=== PATIENT | male | born 1965 | race Caucasian/White ===

== ENCOUNTER 2019-07-10 03:27 | Inpatient (IN) ==
[2019-07-10] MEDS ORDERED: IOPAMIDOL 100 ML BOTTLE IV ONE (03:28)
[2019-07-10] MEDS: 0.9 % SODIUM CHLORIDE 1,000 ML IV SCH ×2 (03:30→11:25)
[2019-07-10] MEDS ORDERED: DILTIAZEM 125 MG in DEXTROSE 5% IN WATER 100 ML IV ONE (03:41)
[2019-07-10] MEDS ORDERED: DILTIAZEM 25 MG/5 ML VIAL IV ONE ×3 (03:41→05:15)
[2019-07-10] MEDS ORDERED: DEXTROSE 5% IN WATER 100 ML IV ONE (03:47)
[2019-07-10] MEDS ORDERED: PIPERACILLIN SODIUM/TAZOBACTAM 3.375 GM in DEXTROSE 5% IN WATER 50 ML IV ONE (03:51)
[2019-07-10] MEDS ORDERED: LEVOFLOXACIN 750 MG/150 ML BAG IV ONE (03:51)
[2019-07-10] MEDS ORDERED: cefTRIAXone 2 GM in DEXTROSE 5% IN WATER 50 ML IV ONE (03:51)
[2019-07-10] MEDS ORDERED: IPRATROPIUM/ALBUTEROL 3 ML AMPUL.NEB NEB ONE ×2 (04:00→10:14)
[2019-07-10] MEDS ORDERED: ACETAMINOPHEN 325 MG TABLET PO ONE (04:18)
[2019-07-10 04:34] LABS: Hematocrit 41.3 % (40.1-51.0); Hemoglobin 13.1 g/dL (13.7-17.5); Mean Cell Volume 89.4 fL (80.0-100.0); Mean Corpuscular HGB Conc 31.7 g/dL (31.0-36.0); Mean Platelet Volume 9.9 fL (7.4-10.4); Platelet Count 237 K/mcL (140-440); RBC 4.62 M/mcL (4.63-6.08); Red Cell Distribution Width 12.9 % (11.5-14.5)
[2019-07-10 04:56] LABS: ALT/SGPT 18 U/l (0-40); AST/SGOT 19 U/l (0-37); Albumin 3.9 gm/dL (3.2-5.2); Albumin/Globulin Ratio 1.3 (1.0-2.3); Alkaline Phosphatase 85 U/L (39-117); Bilirubin,Total 0.8 mg/dL (0.0-1.0); Blood Urea Nitrogen 18 mg/dl (6-20); Calcium 8.6 mg/dl (8.6-10.4); Carbon Dioxide 23 mmol/L (22-30); Chloride 96 mmol/L (96-108); Globulin 3.1 gm/dL (2.2-3.7); Glomerular Filtration Rate 57; Glucose 110 mg/dL (70-105)
[2019-07-10 05:10] LABS: Band Neutrophils % 7 % (0-10); Eosinophils % (Manual) 1 % (0-7); Lymphocytes % 10 % (15-49); Monocytes % (Manual) 7 % (1-12); Platelet Estimate NORMAL (NORMAL); RBC Morphology NORMAL (NORMAL); Segmented Neutrophils % 75 % (38-78)
[2019-07-10] MEDS: HYDROmorphone 2 MG/ML VIAL IV PRN ×3 (05:23→09:07)
[2019-07-10 05:45] LABS: Appearance,Urine CLEAR; Bacteria,Urine 0 /hpf (0); Bilirubin,Urine NEG (NEG); Color,Urine YELLOW; Culture Indicated,Urine NO; Glucose,Urine (UA) NEGATIVE (NEG); Ketones,Urine NEG (NEG); Leukocyte Esterase,Urine NEG /uL (NEG); Mucus,Urine FEW /hpf (0); Nitrate,Urine NEG (NEG); Protein,Urine 100 mg/dL (NEG); Specific Gravity,Urine 1.027 (1.000-1.035); Urine Blood NEG mg/dL (<0.03); Urine Hyaline Cast 2 /lpf (0-2); Urine RBC 2 /hpf (0-1); Urine Squamous Epithelial Cell < 1 /hpf (0-4); Urine WBC 1 /hpf (0-4); Urobilinogen,Urine NEG (NEG)
--- NOTE | 2019-07-10 05:48 | XRay Report ---
CLINICAL INFORMATION:Dyspnea. Fever. TECHNIQUE: AP portable semierect upright chest x-ray COMPARISON: Previous examination dated 06/25/2019 FINDINGS:There is cardiomegaly. This may be slightly worse than on previous examination. Pulmonary vascularity is mildly prominent in the upper lobes consistent with pulmonary congestion. There is no pulmonary edema. There is no focal pulmonary parenchymal infiltrate. No evidence for pneumonia. No detectable pleural effusion on this AP radiograph. Jackeline and mediastinum are within normal limits. There is a rounded density in the right supraclavicular region. Etiology is not certain. There is a similar density identified on the previous examination in the left supraclavicular region. IMPRESSION: 1. Cardiomegaly and probable pulmonary congestion 2. No pulmonary edema. No focal pulmonary parenchymal infiltrate Interpreted and Authenticated by: Babatunde Adam 07/10/19
[2019-07-10] MEDS ORDERED: FUROSEMIDE 40 MG/4 ML VIAL IV ONE (06:48)
--- NOTE | 2019-07-10 06:54 | Emergency Department Note ---
Arrhythmia/Palpitations HPI - General Chief Complaint: Arrhythmia/Palpitations Stated Complaint: rapid HR Time Seen by Provider: 07/10/19 03:46 Source: patient, EMS Mode of arrival: ambulatory Limitations: no limitations - History of Present Illness HPI Narrative: This patient has been increasingly short of breath for the last several days. He does have a history of coronary disease and heart failure and perhaps COPD. He had an MA 6 months ago and was hospitalized at [place]. He had an angiogram at that time but did not require stents. He said some mild chest discomfort over the last couple of days. On arrival emergency room had a temper ature of 102 and his sat was low and required oxygen. - Related Data Home Medications Medication Instructions Recorded Confirmed lisinopril 20 mg tablet 40 mg PO BID tab 06/26/19 Ibuprofen [Motrin] 600 mg PO 07/10/19 Allergies Allergy/AdvReac Type Severity Reaction Status Date / Time No Known Drug Allergies Allergy Verified 07/10/19 03:37 Review of Systems All systems ED: reviewed and negative except as stated. Past Medical History - Past Medical History Medical history: Reports: CAD (coronary artery disease), CHF, COPD, hypertension, myocardial infarction - Social History smoking status: Current every day smoker Physical Exam Limitations: no limitations General appearance: alert Head: atraumatic Eye: Present: normal appearance ENT: Present: normal exam Neck: Present: normal inspection Chest: Present: normal inspection Respiratory: Present: rales/crackles Cardiovascular: Present: tachycardia, irregular rhythm Abdominal: Present: soft. Absent: distention, tenderness Extremities: Absent: pedal edema, pretibial edema Neurological: Present: alert Psychiatric: Present: normal affect Skin: Present: warm, dry Course Vital Signs Temperature 102.0 F H 07/10/19 03:28 Pulse Rate 145 H 07/10/19 03:28 Respiratory Rate 30 H 07/10/19 03:28 Blood Pressure 111/89 07/10/19 03:28 Pulse Oximetry (%) 90 07/10/19 03:28 Temperature 100.5 F H 07/10/19 04:54 Pulse Rate 47 L 07/10/19 08:29 Respiratory Rate 23 H 07/10/19 08:29 Blood Pressure 97/81 07/10/19 08:18 Pulse Oximetry (%) 87 L 07/10/19 08:29 Arrhythmia/Palpitations - MDM Narrative Medical decision making narrative: Radiologist was unwilling to call pneumonia on this patient and is concerned about some heart failure. I discussed case with Dr. Pemberton and he is r equesting repeat troponin and a CT angiogram to rule out PE. Once those tests are back and acceptable he is planning to admit the patient to the hospital. We did start diltiazem for rate control of his atrial fib RVR. We covered him for pneumonia with antibiotics. His blood pressure became quite high and so we gave him Vasotec 2.5 mg IV. - Lab Data Lab results reviewed: Yes I reviewed the patient's lab results. Result diagrams: 07/10/19 03:45 07/10/19 03:45 Lab Results 07/10/19 07/10/19 07/10/19 Range/Units 03:45 03:45 03:45 WBC 8.0 (4.50-11.00) K/mcL RBC 4.62 L (4.63-6.08) M/mcL Hgb 13.1 L (13.7-17.5) g/dL Hct 41.3 (40.1-51.0) % MCV 89.4 (80.0-100.0) fL MCH 28.4 (26.0-34.0) pg MCHC 31.7 (31.0-36.0) g/dL RDW 12.9 (11.5-14.5) % Plt Count 237 (140-440) K/mcL MPV 9.9 (7.4-10.4) fL Total Counted 100 Seg Neutrophils % 75 (38-78) % Band Neutrophils % 7 (0-10) % Lymphocytes % 10 L (15-49) % Monocytes % (Manual) 7 (1-12) % Eosinophils % (Manual) 1 (0-7) % Platelet Estimate Normal (NORMAL) RBC Morphology Normal (NORMAL) D-Dimer (0.00-0.40) ug/ml VBG Lactic Acid 1.0 (0.5-2.0) mmol/L Sodium 133 (133-145) mmol/L Potassium 4.7 (3.3-5.1) mmol/L Chloride 96 (96-108) mmol/L Carbon Dioxide 23 (22-30) mmol/L Anion Gap 14.0 (8-16) BUN 18 (6-20) mg/dl Creatinine 1.4 H (0.7-1.2) mg/dl GFR Calculation 57 Glucose 110 H (70-105) mg/dL Calcium 8.6 (8.6-10.4) mg/dl Total Bilirubin 0.8 (0.0-1.0) mg/dL AST 19 (0-37) U/l ALT 18 (0-40) U/l Alkaline Phosphatase 85 (39-117) U/L Troponin T (0-0.03) ng/ml NT-Pro-B Natriuret Pep 5971.0 H (0-125) pg/ml Total Protein 7.0 (5.9-8.4) gm/dL Albumin 3.9 (3.2-5.2) gm/dL Globulin 3.1 (2.2-3.7) gm/dL Albumin/Globulin Ratio 1.3 (1.0-2.3) Procalcitonin (<0.10) ng/mL Urine Color Urine Appearance Urine pH (5.0-9.0) Ur Specific [place] (1.000-1.035) Urine Protein (NEG) mg/dL Urine Glucose (UA) (NEG) mg/dL Urine Ketones (NEG) mg/dL Urine Occult Blood (<0.03) mg/dL Urine Nitrate (NEG) Urine Bilirubin (NEG) mg/dL Urine Urobilinogen (NEG) mg/dL Ur Leukocyte Esterase (NEG) /uL Urine RBC (0-1) /hpf Urine WBC (0-4) /hpf Ur Squamous Epith Cells (0-4) /hpf Urine Bacteria (0) /hpf Hyaline Casts (0-2) /lpf Urine Mucus (0) /hpf Ur Culture Indicated? 07/10/19 07/10/19 07/10/19 Range/Units 03:45 03:45 03:45 WBC (4.50-11.00) K/mcL RBC (4.63-6.08) M/mcL Hgb (13.7-17.5) g/dL Hct (40.1-51.0) % MCV (80.0-100.0) fL MCH (26.0-34.0) pg MCHC (31.0-36.0) g/dL RDW (11.5-14.5) % Plt Count (140-440) K/mcL MPV (7.4-10.4) fL Total Counted Seg Neutrophils % (38-78) % Band Neutrophils % (0-10) % Lymphocytes % (15-49) % Monocytes % (Manual) (1-12) % Eosinophils % (Manual) (0-7) % Platelet Estimate (NORMAL) RBC Morphology (NORMAL) D-Dimer 0.69 H (0.00-0.40) ug/ml VBG Lactic Acid (0.5-2.0) mmol/L Sodium (133-145) mmol/L Potassium (3.3-5.1) mmol/L Chloride (96-108) mmol/L Carbon Dioxide (22-30) mmol/L Anion Gap (8-16) BUN (6-20) mg/dl Creatinine (0.7-1.2) mg/dl GFR Calculation Glucose (70-105) mg/dL Calcium (8.6-10.4) mg/dl Total Bilirubin (0.0-1.0) mg/dL AST (0-37) U/l ALT (0-40) U/l Alkaline Phosphatase (39-117) U/L Troponin T 0.06 H* (0-0.03) ng/ml NT-Pro-B Natriuret Pep (0-125) pg/ml Total Protein (5.9-8.4) gm/dL Albumin (3.2-5.2) gm/dL Globulin (2.2-3.7) gm/dL Albumin/Globulin Ratio (1.0-2.3) Procalcitonin 0.15 (<0.10) ng/mL Urine Color Urine Appearance Urine pH (5.0-9.0) Ur Specific [place] (1.000-1.035) Urine Protein (NEG) mg/dL Urine Glucose (UA) (NEG) mg/dL Urine Ketones (NEG) mg/dL Urine Occult Blood (<0.03) mg/dL Urine Nitrate (NEG) Urine Bilirubin (NEG) mg/dL Urine Urobilinogen (NEG) mg/dL Ur Leukocyte Esterase (NEG) /uL Urine RBC (0-1) /hpf Urine WBC (0-4) /hpf Ur Squamous Epith Cells (0-4) /hpf Urine Bacteria (0) /hpf Hyaline Casts (0-2) /lpf Urine Mucus (0) /hpf Ur Culture Indicated? 07/10/19 07/10/19 Range/Units 04:45 07:30 WBC (4.50-11.00) K/mcL RBC (4.63-6.08) M/mcL Hgb (13.7-17.5) g/dL Hct (40.1-51.0) % MCV (80.0-100.0) fL MCH (26.0-34.0) pg MCHC (31.0-36.0) g/dL RDW (11.5-14.5) % Plt Count (140-440) K/mcL MPV (7.4-10.4) fL Total Counted Seg Neutrophils % (38-78) % Band Neutrophils % (0-10) % Lymphocytes % (15-49) % Monocytes % (Manual) (1-12) % Eosinophils % (Manual) (0-7) % Platelet Estimate (NORMAL) RBC Morphology (NORMAL) D-Dimer (0.00-0.40) ug/ml VBG Lactic Acid (0.5-2.0) mmol/L Sodium (133-145) mmol/L Potassium (3.3-5.1) mmol/L Chloride (96-108) mmol/L Carbon Dioxide (22-30) mmol/L Anion Gap (8-16) BUN (6-20) mg/dl Creatinine (0.7-1.2) mg/dl GFR Calculation Glucose (70-105) mg/dL Calcium (8.6-10.4) mg/dl Total Bilirubin (0.0-1.0) mg/dL AST (0-37) U/l ALT (0-40) U/l Alkaline Phosphatase (39-117) U/L Troponin T 0.06 H* (0-0.03) ng/ml NT-Pro-B Natriuret Pep (0-125) pg/ml Total Protein (5.9-8.4) gm/dL Albumin (3.2-5.2) gm/dL Globulin (2.2-3.7) gm/dL Albumin/Globulin Ratio (1.0-2.3) Procalcitonin (<0.10) ng/mL Urine Color Yellow Urine Appearance Clear Urine pH 5.0 (5.0-9.0) Ur Specific [place] 1.027 (1.000-1.035) Urine Protein 100 A (NEG) mg/dL Urine Glucose (UA) Negative (NEG) mg/dL Urine Ketones Neg (NEG) mg/dL Urine Occult Blood Neg (<0.03) mg/dL Urine Nitrate Neg (NEG) Urine Bilirubin Neg (NEG) mg/dL Urine Urobilinogen Neg (NEG) mg/dL Ur Leukocyte Esterase Neg (NEG) /uL Urine RBC 2 H (0-1) /hpf Urine WBC 1 (0-4) /hpf Ur Squamous Epith Cells < 1 (0-4) /hpf Urine Bacteria 0 (0) /hpf Hyaline Casts 2 (0-2) /lpf Urine Mucus Few (0) /hpf Ur Culture Indicated? No - Radiology Data Radiology results reviewed: Yes I reviewed the patient's radiology results. Disposition Pt seen by DRIP MOLDER/PA only: No Clinical Impression: Atrial fibrillation, Chest pain, Hypertension, Congestive heart failure Disposition: Xfer As Inpt ([facility]) Condition: Good Referrals: Unknown,Unknown [Primary Care Provider] - Time of Disposition: 08:48
[2019-07-10] MEDS ORDERED: ENALAPRILAT 1.25 MG/ML VIAL IV ONE (08:07)
--- NOTE | 2019-07-10 09:01 | Cat Scan Report ---
CLINICAL INFORMATION: Headache. Hypertension COMPARISON: None. TECHNIQUE: Axial noncontrast-enhanced images through the brain. Sagittally and coronally reformatted images. FINDINGS: No acute intracranial hemorrhage. There is no subdural hematoma. There is no subarachnoid hemorrhage. No intra-axial hematoma. No focal intra-axial attenuation abnormality or localized mass effect. No midline shift. Brain volume is normal. There is no hydrocephalus. Brainstem and cerebellum are negative. No calvarial fracture. There is no lytic lesion. Temporal bones are negative. There is sinusitis. There is mucosal thickening within maxillary, ethmoid, and sphenoid sinuses. There are no air-fluid levels. There is no bone destruction. Temporal bones are negative. IMPRESSION: 1. No intracranial abnormality 2. Sinusitis The exam was performed using radiation dose optimization techniques including, but not limited to, automated exposure control, adjustment of the mA and/or kV according to patient size and use of iterative reconstruction technique. Interpreted and Authenticated by: Babatunde Adam 07/10/19
--- NOTE | 2019-07-10 09:13 | Cat Scan Report ---
CLINICAL INFORMATION: Dyspnea, hypoxia. COMPARISON: Chest x-ray dated 07/10/2019 TECHNIQUE: Axial images obtained through the chest. 80ml Isovue 370 injected intravenously, and scanning was performed during pulmonary arterial phase. Sagittally and coronally reformatted images were obtained. MIP reformatted images. FINDINGS: Suboptimal examination as this patient is unable to suspend respiration Lungs:There are bilateral pulmonary parenchymal infiltrates. These are not well visualized on previous plain film examination. Appearance is consistent with pneumonia. Infiltrates are worst in the left upper lobe and left lower lobe. Mild right-sided infiltrates are present as well. There is apparent bronchial wall thickening although this is suboptimally demonstrated due to respiratory motion. Noncalcified nodules are possible with 2 focal densities in the right middle lobe. These measure 8 mm on image #74 and 9 mm on image 78. These findings may also be inflammatory. 3-6 month follow-up examination is recommended. There is no honeycombing. No significant bronchiectasis. No focal parenchymal consolidation. Mediastinum, vascular:Main pulmonary artery is negative. No intraluminal filling defects. Right and left pulmonary arteries are negative. No segmental emboli. Subsegmental branches are suboptimally visualized. The main pulmonary artery measures approximately 3.7 cm in cross-sectional diameter. This may indicate pulmonary arterial hypertension. Ascending thoracic aorta measures 4.5 cm in diameter. This is mildly enlarged. 12 month follow-up is recommended. There is mild mediastinal and hilar adenopathy. This is probably physiologic. No discrete edgar enlargement is present. Heart:There is four-chamber cardiac enlargement. Left ventricle is markedly enlarged with thick myocardial wall. There is reflux of contrast material into the inferior vena cava and hepatic veins consistent with right heart strain Pleura:There is no pleural effusion. No pericardial effusion Axilla, supraclavicular regions, chest wall:No pathologic axillary adenopathy. Chest wall is negative Musculoskeletal:No thoracic compression fractures. No lytic lesions. Ribs and sternum are negative Upper Abdomen:Spleen is not imaged in its entirety. AP diameter of the spleen is enlarged and measures approximately 16 cm. IMPRESSION: 1. Suboptimal evaluation due to respiratory motion 2. Negative examination for pulmonary embolism 3. Bilateral pulmonary parenchymal infiltrates consistent with pneumonia. Possible right middle lobe nodules. 3-[address] follow-up recommended 4. Enlargement of the main pulmonary artery and ascending thoracic aorta 5. Cardiomegaly with significant left ventricular enlargement 6. Reflux of contrast material consistent with right heart strain 7. Splenomegaly The exam was performed using radiation dose optimization techniques including, but not limited to, automated exposure control, adjustment of the mA and/or kV according to patient size and use of iterative reconstruction technique. Interpreted and Authenticated by: Babatunde Adam 07/10/19
[2019-07-10] MEDS ORDERED: METOPROLOL TARTRATE 5 MG/5 ML VIAL IV ONE (09:45)
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
[2019-07-10] MEDS ORDERED: POTASSIUM CHLORIDE 40 MEQ in DEXTROSE 5% IN WATER 500 ML IV PRN (10:56)
[2019-07-10] MEDS ORDERED: SENNOSIDES 1 TABLET PO PRN (10:56)
[2019-07-10] MEDS ORDERED: ACETAMINOPHEN 325 MG TABLET PO PRN (10:56)
[2019-07-10] MEDS ORDERED: NITROGLYCERIN 0.4 MG TAB.SUBL SL PRN (10:56)
[2019-07-10] MEDS: AZITHROMYCIN 500 MG in DEXTROSE 5% IN WATER 250 ML IV SCH (10:56)
[2019-07-10] MEDS ORDERED: MAGNESIUM SULFATE 2 GM/50 ML BAG IV PRN (10:56)
[2019-07-10] MEDS ORDERED: POLYETHYLENE GLYCOL 3350 17 GM PACKET PO PRN (10:56)
[2019-07-10] MEDS ORDERED: POTASSIUM CHLORIDE 20 MEQ TABLET PO PRN ×2 (10:56)
[2019-07-10 11:22] LABS: Amphetamine Screen,Urine SUSPECT POSITIVE (NONDETECTED); Barbiturate Screen,Urine NONE DETECTED (NONDETECTED); Benzodiazepines Screen,Urine NONE DETECTED (NONDETECTED); Cannabinoid Screen,Urine SUSPECT POSITIVE (NONDETECTED); Cocaine Screen,Urine NONE DETECTED (NONDETECTED); Opiate Screen,Urine NONE DETECTED (NONDETECTED); Oxycodone, Urine Screen NONE DETECTED (NONDETECTED); Phencyclidine Screen,Urine NONE DETECTED (NONDETECTED)
[2019-07-10] MEDS: PIPERACILLIN SODIUM/TAZOBACTAM 3.375 GM in DEXTROSE 5% IN WATER 50 ML IV SCH ×3 (12:00→23:58)
[2019-07-10] MEDS: ASPIRIN 81 MG TAB.CHEW PO SCH (12:44)
[2019-07-10] MEDS: METOPROLOL SUCCINATE 50 MG TAB.XL.24H PO SCH (12:44)
[2019-07-10] MEDS: 0.9 % SODIUM CHLORIDE 10 ML SYRINGE IV SCH ×2 (12:47→21:14)
[2019-07-10] MEDS: METOPROLOL TARTRATE 5 MG/5 ML VIAL IV PRN ×2 (12:54→17:38)
[2019-07-10] MEDS: LORazepam 2 MG/ML VIAL IV PRN ×2 (13:06→18:23)
[2019-07-10] MEDS: HYDROcodone/APAP 5/325MG TABLET PO PRN ×2 (13:06→18:20)
[2019-07-10] MEDS: RIVAROXABAN 20 MG TABLET PO SCH (13:09)
[2019-07-10] MEDS: ATORVASTATIN 20 MG TABLET PO SCH (21:13)
[2019-07-11] MEDS: HYDROcodone/APAP 5/325MG TABLET PO PRN ×4 (00:43→21:55)
--- NOTE | 2019-07-11 00:43 | Internal Med Progress Note ---
Medical - PN: Subj Patient information: Note initiated : 07/10/19 at 2026 pm Service Date, if different from initiated Date: [] Patient: Wilfredo Miranda a 54 y/o M admitted on 07/10/19 for rapid HR. Chief Complaint: [] Interval history: Mr. Miranda is a 54 year old M Presents ED with increasing shortness of breath and fevers and chills. She also complains of chest tightness which she relates to feeling like he has gurgling in his his lungs and this has been occurring intermittently for the past 6 months. 6 months ago he was admitted to [place] for a non-ST elevation [place]. He had a coronary catheterization which showed normal coronaries. Echocardiogram showed EF of 40 to 45% with diastolic dysfunction. He had moderate pulmonary hypertension. Patient has had increased cough for 3 days occasionally productive of clear sputum. Also has sinus congestion. In ED requiring 10 to 12 L of oxygen. CTA of the chest showed bilateral parenchymal infiltrates worse on the left. No pulmonary emboli. Fever of 102 when he came in. He was tachycardic in the 130s with A. fib. He was started on diltiazem drip. Had some low blood pressure since then. Lactic acid is okay. Has had leg swelling the past but not too much right now. ER monitor is recording pulse of 30 but this is the pulse ox its recording that and per the staff his actual heart rates 90s. His troponin was 0.06 as it was on previous ED visit and May and a repeat was remained the same. Patient is only been taking his lisinopril and aspirin. He has not been taking the metoprolol Xarelto Aldactone Lasix and statin medication as prescribed on last discharge from [facility]. 210- 11.45 PM, ABG improved 7.3 on 50% FiO2 BiPAP. Continue antibiotic coverage/noninvasive ventilation. Telemetry A. fib with variable rate c urrently controlled around 110. No chest pain. Repeat chest imaging/ABGs in the morning. Troponin recheck 0.08. Staff expressed concerns about urine retention/throbbing headache. - Constitutional Vitals: Vital Signs Temp Pulse Resp BP Pulse Ox 97.0 F 94 H 16 132/84 99 07/10/19 21:30 07/10/19 23:23 07/10/19 23:23 07/10/19 22:04 07/10/19 23:23 Period Temp Pulse Resp BP Sys/Garcia Pulse Ox Last 24 Hr 96.5 F-102.0 F 33-145 15-33 87-254/62-241 76-100 Intake and Output 07/10/19 07/10/19 07/11/19 13:59 21:59 05:59 Intake Total 838 50 50 Output Total 1500 200 Balance -662 -150 50 Weight 245 lb 256 lb 3.2 oz Patient Weight 07/11/19 05:59 Weight 256 lb 3.2 oz Intake & Output: Intake & Output 07/10/19 07/10/19 07/11/19 13:59 21:59 05:59 Intake Total 838 50 50 Output Total 1500 200 Balance -662 -150 50 Weight 245 lb 256 lb 3.2 oz Intake: IV 838 50 50 Sodium Chloride 0.9% 1,000 ml @ 420 250 mls/hr IV .Q4H [facility] Rx#: [id number] Zithromax 500 mg In Dextrose 5% 250 in Water 250 ml @ 250 mls/hr IV DAILY [facility] Rx#:[id number] Cardizem 125 mg In Dextrose 5% 68 in Water 100 ml @ 5 MG/HR 5 mls /hr IV Q12H [facility] Rx#:[id number] Zosyn 3.375 gm In Dextrose 5% 100 50 50 in Water 50 ml @ 100 mls/hr IV Q6H [facility] Rx#:[id number] Output: Void Amount 1500 200 Other: Urine Appearance Sediment Clear Urine Color Dark Yellow Dark [place] Urine Odor Normal Strong General appearance: moderate distress (Labored breathing currently on BiPAP) Exam: Remains drowsy but respond to commands No telemetry events Nondistended abdomen Labored breathing Medical - PN: Obj Da - Labs CBC & Chem 7: 07/11/19 01:33 07/11/19 01:33 Labs: Abnormal Lab Results 07/10/19 07/10/19 07/10/19 23:27 07:30 04:45 RBC Hgb Lymphocytes % D-Dimer Creatinine Glucose Troponin T 0.08 H* 0.06 H* NT-Pro-B Natriuret Pep Urine Protein Urine RBC Ur Amphetamines Screen Suspect positive A U Marijuana (THC) Screen Suspect positive A 07/10/19 07/10/19 07/10/19 04:45 03:45 03:45 RBC Hgb Lymphocytes % D-Dimer 0.69 H Creatinine Glucose Troponin T 0.06 H* NT-Pro-B Natriuret Pep Urine Protein 100 A Urine RBC 2 H Ur Amphetamines Screen U Marijuana (THC) Screen 07/10/19 07/10/19 03:45 03:45 RBC 4.62 L Hgb 13.1 L Lymphocytes % 10 L D-Dimer Creatinine 1.4 H Glucose 110 H Troponin T NT-Pro-B Natriuret Pep 5971.0 H Urine Protein Urine RBC Ur Amphetamines Screen U Marijuana (THC) Screen Meds: Medications Acetaminophen (Tylenol) 650 mg PO Q6HP PRN PRN Reason: PAIN/FEVER > 101 Last Admin: 07/10/19 21:22 Dose: 650 mg Documented by: Hydrocodone Bitart/Acetaminophen ([place] 5/325mg) 1 tab PO Q6HP PRN; Protocol PRN Reason: Per Pain Protocol Last Admin: 07/10/19 18:20 Dose: 1 tab Documented by: Albuterol/Ipratropium (Duoneb) 3 ml NEB Q4HP PRN PRN Reason: Shortness Of Breath Aspirin (Aspirin) 81 mg PO DAILY [facility] Last Admin: 07/10/19 12:44 Dose: 81 mg Documented by: Atorvastatin Calcium (Lipitor) 20 mg PO HS [facility] Last Admin: 07/10/19 21:13 Dose: 20 mg Documented by: Furosemide (Lasix) 40 mg PO DAILY [facility] Diltiazem HCl 125 mg/ Dextrose 125 mls @ 5 mls/hr IV Q12H [facility]; Protocol Stop: 07/11/19 04:40 Last Titration: 07/10/19 10:00 Dose: Infused Documented by: Potassium Chloride 40 meq/ (Dextrose) 520 mls @ 130 mls/hr IV UD PRN PRN Reason: Potassium < 3 Magnesium Sulfate (Magnesium Sulfate) 2 gm in 50 mls @ 50 mls/hr IV UD PRN PRN Reason: Magnesium </= 1.6 Piperacillin Sod/Tazobactam (Sod 3.375 gm/ Dextrose) 50 mls @ 100 mls/hr IV Q6H [facility]; Protocol Last Infusion: 07/11/19 00:29 Dose: Infused Documented by: Azithromycin 500 mg/ Dextrose 250 mls @ 250 mls/hr IV DAILY [facility]; Protocol Stop: 07/12/19 09:59 Last Infusion: 07/10/19 11:57 Dose: Infused Documented by: Labetalol HCl (Trandate) 0 mg IV Q2HP PRN PRN Reason: Hypertension Lorazepam (Ativan) 0.5 mg IV Q6HP PRN PRN Reason: ANXIETY/SEDATION Last Admin: 07/10/19 18:23 Dose: 0.5 mg Documented by: Metoprolol Succinate (Toprol Xl) 50 mg PO DAILY [facility] Last Admin: 07/10/19 12:44 Dose: 50 mg Documented by: Metoprolol Tartrate (Lopressor) 5 mg IV Q2HP PRN PRN Reason: Tachyarrhythmias HR>110 Last Admin: 07/10/19 17:38 Dose: 5 mg Documented by: Nitroglycerin (Nitrostat) 0.4 mg SL Q5M PRN PRN Reason: Chest Pain Ondansetron HCl (Zofran) 4 mg IV Q4HP PRN PRN Reason: Nausea And Vomiting Polyethylene Glycol (Miralax) 17 gm PO DAILYP PRN PRN Reason: Constipation Potassium Chloride (Kdur) 40 meq PO UD PRN PRN Reason: Potssium is 3-3.5 Potassium Chloride (Kdur) 40 meq PO UD PRN PRN Reason: Potassium < 3 Rivaroxaban (Xarelto) 20 mg PO QPMCC [facility] Last Admin: 07/10/19 13:09 Dose: 20 mg Documented by: Senna (Senokot) 2 tab PO DAILYP PRN PRN Reason: Constipation Sodium Chloride (Saline Flush) 10 ml IV Q8 [facility] Last Admin: 07/10/19 21:14 Dose: 10 ml Documented by: Spironolactone (Aldactone) 25 mg PO DAILY [facility] Medical - PN: A/P - Time Spent With Patient Total time spent is greater than 50% in coordination of care (as documented) at patient's floor/unit and/or counseling patient: Greater than 35 minutes (Critical care time) (1) Sepsis with acute hypoxic respiratory failure without septic shock Status: Acute Assessment and plan: * Acute respiratory failure with hypoxia and hypercapnia-respiratory acidosis. Currently on 50% BiPAP with improving blood gases/CO2 and pH. Continue no ninvasive ventilation. * Pneumonia community-acquired continue antibiotic coverage * Sepsis secondary above continue management per guidelines * A. fib with RVR currently rate controlled. Patient not taking his home dose beta-birgit or Xarelto * Demand ischemia with troponin elevation peak 8.08, recent cardiac cath 10/2018 normal coronaries * History of CKD creatinine 1.7 * Obesity * History of CVA * Tobacco dependence * History of hypertension-has not been taking his home medications. Plan * Continue noninvasive ventilation * ICU care * Rate control measures * Sepsis management guidelines * Serial chest imaging/ABGs Current Visit: Yes Medical - PN: Qual - VTE Deep Vein Thrombosis/Pulmonary Embolism Present on Admission: No
[2019-07-11] MEDS: LORazepam 2 MG/ML VIAL IV PRN ×4 (00:58→19:56)
[2019-07-11 01:44] LABS: POC Blood Urea Nitrogen 28 mg/dl (6-20); POC CO2 29 mmol/L (22-30); POC Calcium, Ionized 1.08 mmol/L (1.16-1.32); POC Chloride 100 mmol/L (96-108); POC Creatinine 1.7 mg/dl (0.7-1.2); POC Glucose, Random 90 mg/dL (70-105); POC Potassium 4.2 mmol/L (3.3-5.1); POC Sodium 137 mmol/L (133-145)
[2019-07-11 02:12] LABS: Basophils # (Auto) 0.03 K/mcL (0.00-0.30); Basophils % (Auto) 0.6 % (0.0-2.0); Eosinophils # (Auto) 0.08 K/mcL (0.00-0.70); Eosinophils % (Auto) 1.7 % (0.0-7.0); Granulocytes % (Auto) 66.9 % (38.0-78.0); Hematocrit 40.2 % (40.1-51.0); Hemoglobin 12.4 g/dL (13.7-17.5); Lymphocytes % (Auto) 20.7 % (15.5-49.0); Mean Cell Volume 91.6 fL (80.0-100.0); Mean Corpuscular HGB Conc 30.8 g/dL (31.0-36.0); Mean Platelet Volume 10.1 fL (7.4-10.4); Monocytes # (Auto) 0.49 K/mcL (0.10-0.90); Monocytes % (Auto) 10.1 % (1.0-12.0); Platelet Count 189 K/mcL (140-440); RBC 4.39 M/mcL (4.63-6.08); Red Cell Distribution Width 13.5 % (11.5-14.5); WBC 4.8 K/mcL (4.50-11.00)
[2019-07-11 02:26] LABS: ALT/SGPT 17 U/l (0-40); AST/SGOT 18 U/l (0-37); Albumin 3.5 gm/dL (3.2-5.2); Albumin/Globulin Ratio 1.3 (1.0-2.3); Alkaline Phosphatase 71 U/L (39-117); Bilirubin,Direct 0.3 mg/dL (0.0-0.3); Bilirubin,Total 0.8 mg/dL (0.0-1.0); Blood Urea Nitrogen 26 mg/dl (6-20); Calcium 8.1 mg/dl (8.6-10.4); Carbon Dioxide 26 mmol/L (22-30); Chloride 100 mmol/L (96-108); Globulin 2.8 gm/dL (2.2-3.7); Glomerular Filtration Rate 45; Glucose 94 mg/dL (70-105); HDL Cholesterol 27 mg/dl (>40); LDL Cholesterol,Calculated 49 mg/dl (SEE CHART); Lactate Dehydrogenase 263 U/L (94-250); Non-HDL Cholesterol 61 (LDL TARGET+30); Phosphorous 4.3 mg/dL (2.7-4.5); Triglycerides 63 mg/dl (<150); Uric Acid 5.9 mg/dL (2.5-8.0)
[2019-07-11 02:56] LABS: Appearance,Urine CLOUDY; Bacteria,Urine 0 /hpf (0); Bilirubin,Urine NEG (NEG); Color,Urine YELLOW; Culture Indicated,Urine YES; Glucose,Urine (UA) 50 mg/dL (NEG); Ketones,Urine 5/TR mg/dL (NEG); Leukocyte Esterase,Urine NEG /uL (NEG); Nitrate,Urine NEG (NEG); Protein,Urine 100 mg/dL (NEG); Specific Gravity,Urine 1.039 (1.000-1.035); Urine Blood 0.2 mg/dL (<0.03); Urine Budding Yeast MANY /hpf (0); Urine RBC > 182 /hpf (0-1); Urine Squamous Epithelial Cell 0 /hpf (0-4); Urine WBC 62 /hpf (0-4); Urobilinogen,Urine NEG (NEG)
[2019-07-11] MEDS: PIPERACILLIN SODIUM/TAZOBACTAM 3.375 GM in DEXTROSE 5% IN WATER 50 ML IV SCH ×3 (05:13→16:47)
[2019-07-11] MEDS: 0.9 % SODIUM CHLORIDE 10 ML SYRINGE IV SCH ×3 (05:13→21:35)
[2019-07-11] MEDS: FUROSEMIDE 40 MG TABLET PO SCH (08:11)
[2019-07-11] MEDS: METOPROLOL SUCCINATE 50 MG TAB.XL.24H PO SCH (08:11)
[2019-07-11] MEDS: SPIRONOLACTONE 25 MG TABLET PO SCH (08:12)
[2019-07-11] MEDS: AZITHROMYCIN 500 MG in DEXTROSE 5% IN WATER 250 ML IV SCH (08:12)
[2019-07-11] MEDS: IPRATROPIUM/ALBUTEROL 3 ML AMPUL.NEB NEB PRN ×2 (08:16→12:44)
--- NOTE | 2019-07-11 09:41 | XRay Report ---
CLINICAL INFORMATION:Hypoxia. Pneumonia. TECHNIQUE: AP portable semiupright chest x-ray COMPARISON: Previous chest CT scan dated 07/10/2019. Previous chest x-rays dated 07/10/2019 and 06/25/2019 FINDINGS:Persistent cardiomegaly. This is unchanged. There is pulmonary parenchymal infiltrate. Infiltrate is bilateral, left worse than right. Infiltrate appears worse than on previous plain film examination dated 07/10/2019. Continued follow-up recommended. There is no focal consolidation. There is no discrete mass. There is no evidence for pulmonary edema. Costophrenic angles are sharp without findings of pleural effusion. IMPRESSION: 1. Cardiomegaly, unchanged. No evidence for congestive heart failure 2. Increased bilateral pulmonary parenchymal infiltrate consistent with pneumonia Interpreted and Authenticated by: Babatunde Adam 07/11/19
[2019-07-11] MEDS: METOPROLOL TARTRATE 5 MG/5 ML VIAL IV PRN ×2 (10:58→13:55)
[2019-07-11] MEDS ORDERED: METOPROLOL TARTRATE 5 MG/5 ML VIAL IV PRN (15:30)
[2019-07-11] MEDS ORDERED: METOPROLOL TARTRATE 5 MG/5 ML VIAL IV SCH (15:30)
[2019-07-11] MEDS: ASPIRIN 81 MG TAB.CHEW PO SCH (16:47)
[2019-07-11] MEDS: RIVAROXABAN 20 MG TABLET PO SCH (16:47)
[2019-07-11] MEDS: ATORVASTATIN 20 MG TABLET PO SCH (19:56)
--- NOTE | 2019-07-11 20:41 | Internal Med Progress Note ---
Medical - PN: Subj Patient information: Note initiated : 07/11/19 at 8:37 pm Service Date, if different from initiated Date: [] Patient: Wilfredo Miranda a 54 y/o M admitted on 07/10/19 for rapid HR. Chief Complaint: [] Interval history: Mr. Miranda is a 54 year old M Presents ED with increasing shortness of breath and fevers and chills. She also complains of chest tightness which she relates to feeling like he has gurgling in his his lungs and this has been occurring intermittently for the past 6 months. 6 months ago he was admitted to [place] for a non-ST elevation [place]. He had a coronary catheterization which showed normal coronaries. Echocardiogram showed EF of 40 to 45% with diastolic dysfunction. He had moderate pulmonary hypertension. Patient has had increased cough for 3 days occasionally productive of clear sputum. Also has sinus congestion. In ED requiring 10 to 12 L of oxygen. CTA of the chest showed bilateral parenchymal infiltrates worse on the left. No pulmonary emboli. Fever of 102 when he came in. He was tachycardic in the 130s with A. fib. He was started on diltiazem drip. Had some low blood pressure since then. Lactic acid is okay. Has had leg swelling the past but not too much right now. ER monitor is recording pulse of 30 but this is the pulse ox its recording that and per the staff his actual heart rates 90s. His troponin was 0.06 as it was on previous ED visit and May and a repeat was remained the same. Patient is only been taking his lisinopril and aspirin. He has not been taking the metoprolol Xarelto Aldactone Lasix and statin medication as prescribed on last discharge from [place]. 07/10- 11.45 PM, ABG improved 7.3 / on 50% FiO2 BiPAP. Continue antibiotic coverage/noninvasive ventilation. Telemetry A. fib with variable rate c urrently controlled around 110. No chest pain. Repeat chest imaging/ABGs in the morning. Troponin recheck 0.08. Staff expressed concerns about urine retention/throbbing headache. 07/11-patient currently on BiPAP. Reviewed blood gases and chest imaging. On 40% FiO2.ABG 7.30/63/115, bilateral multifocal chest infiltrates worsening. On antibiotic coverage. Continue noninvasive ventilation as tolerated. Continue ICU care. Remains critically ill. A. fib RVR now rate controlled around 120. Continue beta-birgit. - Constitutional Vitals: Vital Signs Temp Pulse Resp BP Pulse Ox 97.6 F 111 H 17 128/102 93 07/11/19 20:07 07/11/19 14:29 07/11/19 20:07 07/11/19 20:07 07/11/19 20:07 Period Temp Pulse Resp BP Sys/Garcia Pulse Ox Last 24 Hr 97.0 F-98.4 F 94-128 04-28 100-148/67-112 85-100 Intake and Output 07/11/19 07/11/19 07/11/19 05:59 13:59 21:59 Intake Total 1060 1650 320 Output Total 747 625 365 Balance 313 1025 -45 Weight 256 lb 3.2 oz 253 lb 8 oz Patient Weight 07/12/19 05:59 Weight 253 lb 8 oz Intake & Output: Intake & Output 07/11/19 07/11/19 07/11/19 05:59 13:59 21:59 Intake Total 1060 1650 320 Output Total 747 625 365 Balance 313 1025 -45 Weight 256 lb 3.2 oz 253 lb 8 oz Intake: IV 100 300 50 Zithromax 500 mg In Dextrose 5% 250 in Water 250 ml @ 250 mls/hr IV DAILY [facility] Rx#:[id number] Zosyn 3.375 gm In Dextrose 5% 100 50 50 in Water 50 ml @ 100 mls/hr IV Q6H [facility] Rx#:[id number] Oral 960 1350 270 Output: Urine Catheter Amount 747 625 365 Stool 0 Other: Meal snack Lunch Dinner Percent of Meal Consumed 100% 100% 100% Feeding Ability Assist with Tray Set Up Independent Urine Appearance Cloudy Hematuria Hematuria Uretheral (Yao) Cloudy Cloudy Cloudy Sediment Hematuria Small Blood Clots Hematuria Urine Color Straw Brown Dark Red Dark Red Uretheral (Yao) Dark Red Dark Red Straw Blood Tinged Urine Odor Normal Normal Stool Size Large Moderate Stool Color Brown Brown Stool Consistency Formed Liquid # Bowel Movements 1 General appearance: moderate distress (Short of breath currently on BiPAP) Exam: Telemetry A. fib RVR Nonlabored breathing Yao is draining bloody urine Anxious Medical - PN: Obj Da - Labs CBC & Chem 7: 07/11/19 01:33 07/11/19 01:33 Labs: Abnormal Lab Results 07/11/19 07/11/19 07/11/19 01:33 01:33 01:33 RBC 4.39 L Hgb 12.4 L POC Hct 38.0 L MCHC 30.8 L Lymph # (Auto) 1.00 L Lymphocytes % D-Dimer POC BUN 28 H BUN 26 H Creatinine 1.7 H POC Creatinine 1.7 H Glucose Calcium 8.1 L POC WB Ioniz Calcium 1.08 L Lactate Dehydrogenase 263 H Troponin T NT-Pro-B Natriuret Pep HDL Cholesterol 27 L Ur Specific [place] Urine Protein Urine Glucose (UA) Urine Ketones Urine Occult Blood Urine RBC Urine WBC Urine Yeast (Budding) Ur Amphetamines Screen U Marijuana (THC) Screen 07/11/19 07/10/19 07/10/19 01:32 23:27 07:30 RBC Hgb POC Hct MCHC Lymph # (Auto) Lymphocytes % D-Dimer POC BUN BUN Creatinine POC Creatinine Glucose Calcium POC WB Ioniz Calcium Lactate Dehydrogenase Troponin T 0.08 H* 0.06 H* NT-Pro-B Natriuret Pep HDL Cholesterol Ur Specific [place] 1.039 H Urine Protein 100 A Urine Glucose (UA) 50 A Urine Ketones 5/tr A Urine Occult Blood 0.2 A Urine RBC > 182 H Urine WBC 62 H Urine Yeast (Budding) Many A Ur Amphetamines Screen U Marijuana (THC) Screen 07/10/19 07/10/19 07/10/19 04:45 04:45 03:45 RBC Hgb POC Hct MCHC Lymph # (Auto) Lymphocytes % D-Dimer POC BUN BUN Creatinine POC Creatinine Glucose Calcium POC WB Ioniz Calcium Lactate Dehydrogenase Troponin T 0.06 H* NT-Pro-B Natriuret Pep HDL Cholesterol Ur Specific [place] Urine Protein 100 A Urine Glucose (UA) Urine Ketones Urine Occult Blood Urine RBC 2 H Urine WBC Urine Yeast (Budding) Ur Amphetamines Screen Suspect positive A U Marijuana (THC) Screen Suspect positive A 07/10/19 07/10/19 07/10/19 03:45 03:45 03:45 RBC 4.62 L Hgb 13.1 L POC Hct MCHC Lymph # (Auto) Lymphocytes % 10 L D-Dimer 0.69 H POC BUN BUN Creatinine 1.4 H POC Creatinine Glucose 110 H Calcium POC WB Ioniz Calcium Lactate Dehydrogenase Troponin T NT-Pro-B Natriuret Pep 5971.0 H HDL Cholesterol Ur Specific [place] Urine Protein Urine Glucose (UA) Urine Ketones Urine Occult Blood Urine RBC Urine WBC Urine Yeast (Budding) Ur Amphetamines Screen U Marijuana (THC) Screen Meds: Medications Acetaminophen (Tylenol) 650 mg PO Q6HP PRN PRN Reason: PAIN/FEVER > 101 Last Admin: 07/10/19 21:22 Dose: 650 mg Documented by: Hydrocodone Bitart/Acetaminophen ([place] 5/325mg) 1 tab PO Q6HP PRN; Protocol PRN Reason: Per Pain Protocol Last Admin: 07/11/19 17:49 Dose: 1 tab Documented by: Albuterol/Ipratropium (Duoneb) 3 ml NEB Q4HP PRN PRN Reason: Shortness Of Breath Last Admin: 07/11/19 12:44 Dose: 3 ml Documented by: Aspirin (Aspirin) 81 mg PO DAILY [facility] Last Admin: 07/11/19 16:47 Dose: 81 mg Documented by: Atorvastatin Calcium (Lipitor) 20 mg PO HS [facility] Last Admin: 07/11/19 19:56 Dose: 20 mg Documented by: Furosemide (Lasix) 40 mg PO DAILY [facility] Last Admin: 07/11/19 08:11 Dose: 40 mg Documented by: Potassium Chloride 40 meq/ (Dextrose) 520 mls @ 130 mls/hr IV UD PRN PRN Reason: Potassium < 3 Magnesium Sulfate (Magnesium Sulfate) 2 gm in 50 mls @ 50 mls/hr IV UD PRN PRN Reason: Magnesium </= 1.6 Piperacillin Sod/Tazobactam (Sod 3.375 gm/ Dextrose) 50 mls @ 100 mls/hr IV Q6H [facility]; Protocol Last Infusion: 07/11/19 17:17 Dose: Infused Documented by: Azithromycin 500 mg/ Dextrose 250 mls @ 250 mls/hr IV DAILY [facility]; Protocol Stop: 07/12/19 09:59 Last Infusion: 07/11/19 09:12 Dose: Infused Documented by: Labetalol HCl (Trandate) 0 mg IV Q2HP PRN PRN Reason: Hypertension Lorazepam (Ativan) 0.5 mg IV Q6HP PRN PRN Reason: ANXIETY/SEDATION Last Admin: 07/11/19 19:56 Dose: 0.5 mg Documented by: Metoprolol Succinate (Toprol Xl) 50 mg PO DAILY [facility] Last Admin: 07/11/19 08:11 Dose: 50 mg Documented by: Metoprolol Tartrate (Lopressor) 5 mg IV Q5M PRN PRN Reason: Tachycardia > 120-130 Nitroglycerin (Nitrostat) 0.4 mg SL Q5M PRN PRN Reason: Chest Pain Ondansetron HCl (Zofran) 4 mg IV Q4HP PRN PRN Reason: Nausea And Vomiting Polyethylene Glycol (Miralax) 17 gm PO DAILYP PRN PRN Reason: Constipation Potassium Chloride (Kdur) 40 meq PO UD PRN PRN Reason: Potssium is 3-3.5 Potassium Chloride (Kdur) 40 meq PO UD PRN PRN Reason: Potassium < 3 Rivaroxaban (Xarelto) 20 mg PO QPMCC [facility] Last Admin: 07/11/19 16:47 Dose: 20 mg Documented by: Senna (Senokot) 2 tab PO DAILYP PRN PRN Reason: Constipation Sodium Chloride (Saline Flush) 10 ml IV Q8 [facility] Last Admin: 07/11/19 13:39 Dose: 10 ml Documented by: Spironolactone (Aldactone) 25 mg PO DAILY [facility] Last Admin: 07/11/19 08:12 Dose: 25 mg Documented by: Medical - PN: A/P - Time Spent With Patient Total time spent is greater than 50% in coordination of care (as documented) at patient's floor/unit and/or counseling patient: Greater than 35 minutes (Critical care time) (1) Sepsis with acute hypoxic respiratory failure without septic shock Status: Acute Assessment and plan: * Acute respiratory failure with hypoxia and hypercapnia with respiratory acidosis. Improving blood gases. Continue noninvasive mechanical ventilation. * Bilateral multifocal pneumonia likely community-acquired -on antibiotic coverage * Sepsis secondary above continue management per guidelines * A. fib with RVR currently rate controlled. Restarted on beta-birgit. Patient has not been taking his beta-birgit or Xarelto at home * Demand ischemia with troponin elevation peak 0.08, recent cardiac cath 10/2018 normal coronaries * History of CKD creatinine 1.7. Continue monitoring * Obesity, BMI 37. Continue targeted intervention including nutrition and therapies * History of CVA * Tobacco dependence * History of hypertension-has not been taking his home medications. Plan * Wean noninvasive mechanical ventilation as tolerated * Serial blood gas/chest imaging * antibiotic coverage * Continue rate control measures * Sepsis management guidelines * Remains critically ill Current Visit: Yes Medical - PN: Qual - VTE Deep Vein Thrombosis/Pulmonary Embolism Present on Admission: No
[2019-07-11] MEDS: LABETALOL 5 MG/ML ML IV PRN (22:13)
[2019-07-12] MEDS: PIPERACILLIN SODIUM/TAZOBACTAM 3.375 GM in DEXTROSE 5% IN WATER 50 ML IV SCH ×5 (00:16→23:07)
[2019-07-12] MEDS: HYDROcodone/APAP 5/325MG TABLET PO PRN ×4 (02:00→19:45)
[2019-07-12] MEDS: 0.9 % SODIUM CHLORIDE 10 ML SYRINGE IV SCH ×3 (05:56→20:49)
[2019-07-12] MEDS: LORazepam 2 MG/ML VIAL IV PRN ×3 (06:42→19:45)
[2019-07-12] MEDS: ASPIRIN 81 MG TAB.CHEW PO SCH (08:34)
[2019-07-12] MEDS: SPIRONOLACTONE 25 MG TABLET PO SCH (08:34)
[2019-07-12] MEDS: METOPROLOL SUCCINATE 50 MG TAB.XL.24H PO SCH (08:34)
[2019-07-12] MEDS: FUROSEMIDE 40 MG TABLET PO SCH (08:34)
[2019-07-12] MEDS: AZITHROMYCIN 500 MG in DEXTROSE 5% IN WATER 250 ML IV SCH (08:35)
[2019-07-12] MEDS ORDERED: ACETAMINOPHEN 325 MG TABLET PO SCH (09:16)
[2019-07-12] MEDS: IBUPROFEN 200 MG TABLET PO SCH ×2 (09:31→20:48)
[2019-07-12] MEDS: ACETAMINOPHEN 325 MG TABLET PO SCH ×3 (09:32→20:49)
--- NOTE | 2019-07-12 10:23 | Internal Med Progress Note ---
Medical - PN: Subj Patient information: Note initiated : 07/12/19 at 10:21 am Service Date, if different from initiated Date: [] Patient: Wilfredo Miranda a 54 y/o M admitted on 07/10/19 for rapid HR. Chief Complaint: [] Interval history: Mr. Miranda is a 54 year old M Presents ED with increasing shortness of breath and fevers and chills. She also complains of chest tightness which she relates to feeling like he has gurgling in his his lungs and this has been occurring intermittently for the past 6 months. 6 months ago he was admitted to [place] for a non-ST elevation [place]. He had a coronary catheterization which showed normal coronaries. Echocardiogram showed EF of 40 to 45% with diastolic dysfunction. He had moderate pulmonary hypertension. Patient has had increased cough for 3 days occasionally productive of clear sputum. Also has sinus congestion. In ED requiring 10 to 12 L of oxygen. CTA of the chest showed bilateral parenchymal infiltrates worse on the left. No pulmonary emboli. Fever of 102 when he came in. He was tachycardic in the 130s with A. fib. He was started on diltiazem drip. Had some low blood pressure since then. Lactic acid is okay. Has had leg swelling the past but not too much right now. ER monitor is recording pulse of 30 but this is the pulse ox its recording that and per the staff his actual heart rates 90s. His troponin was 0.06 as it was on previous ED visit and May and a repeat was remained the same. Patient is only been taking his lisinopril and aspirin. He has not been taking the metoprolol Xarelto Aldactone Lasix and statin medication as prescribed on last discharge from [place]. 07/10- 11.45 PM, ABG improved 7.3 on 50% FiO2 BiPAP. Continue antibiotic coverage/noninvasive ventilation. Telemetry A. fib with variable rate currently controlled around 110. No chest pain. Repeat chest imaging/ABGs in the morning. Troponin recheck 0.08. Staff expressed concerns about urine retention/throbbing headache. 07/11-patient currently on BiPAP. Reviewed blood gases and chest imaging. On 40% FiO2.ABG 7.30/63/115, bilateral multifocal chest infiltrates worsening. On antibiotic coverage. Continue noninvasive ventilation as tolerated. Continue ICU care. Remains critically ill. A. fib RVR now rate controlled around 120. Continue beta-birgit. 07/12-patient on trials off BiPAP. Improved oxygenation currently on 5 L nasal cannula. Able to talk in full sentences. Complains of splitting headache which has has been longstanding over the last 5 years. However now feels out of control. Started on scheduled Tylenol/Motrin. Continuing antibiotic coverage. Also concerns about a prior history of spider bite on the nose in relation to headaches. It showed that patient is already on antibiotics for pneumonia and t here is no active visible active area of skin infection that needs to be addressed emergently. - Constitutional Vitals: Vital Signs Temp Pulse Resp BP Pulse Ox 98.1 F 104 H 22 124/103 100 07/12/19 08:01 07/12/19 09:39 07/12/19 09:39 07/12/19 08:01 07/12/19 09:39 Period Temp Pulse Resp BP Sys/Garcia Pulse Ox Last 24 Hr 97.1 F-98.8 F 104-137 4-26 104-162/78-119 77-100 Intake and Output 07/11/19 07/12/19 07/12/19 21:59 05:59 13:59 Intake Total 1070 2420 50 Output Total 665 401 Balance 405 2018 50 Weight 253 lb 8 oz Intake & Output: Intake & Output 07/11/19 07/12/19 07/12/19 21:59 05:59 13:59 Intake Total 1070 2420 50 Output Total 665 401 Balance 405 2018 50 Weight 253 lb 8 oz Intake: IV 50 50 50 Zosyn 3.375 gm In Dextrose 5% 50 50 50 in Water 50 ml @ 100 mls/hr IV Q6H [facility] Rx#:[id number] Oral 1020 2370 Output: Urine Catheter Amount 665 300 Void Amount 100 # of times incontinent of urine 1 Other: Meal snack snack Percent of Meal Consumed 100% 100% Feeding Ability Independent Urine Appearance Cloudy Cloudy Sediment Hematuria Hematuria Small Blood Clots Small Blood Clots Uretheral (Yao) Clear Hematuria Small Blood Clots Urine Color Light Kendal Light Kendal Tea Colored Uretheral (Yao) Light Kendal Light Kendal Urine Odor Normal Normal Stool Size Moderate Stool Color Brown Stool Consistency Liquid # Voids 1 # Bowel Movements 1 General appearance: no acute distress Exam: Alert but anxious Telemetry intermittent RVR/A. fib Nonlabored breathing Diminished breath sounds bases Abdomen soft nontender Lower extremity no cyanosis clubbing or lymphedema Medical - PN: Obj Da - Labs CBC & Chem 7: 07/11/19 01:33 07/11/19 01:33 Labs: Abnormal Lab Results 07/11/19 07/11/19 07/11/19 01:33 01:33 01:33 RBC 4.39 L Hgb 12.4 L POC Hct 38.0 L MCHC 30.8 L Lymph # (Auto) 1.00 L Lymphocytes % D-Dimer POC BUN 28 H BUN 26 H Creatinine 1.7 H POC Creatinine 1.7 H Glucose Calcium 8.1 L POC WB Ioniz Calcium 1.08 L Lactate Dehydrogenase 263 H Troponin T NT-Pro-B Natriuret Pep HDL Cholesterol 27 L Ur Specific [place] Urine Protein Urine Glucose (UA) Urine Ketones Urine Occult Blood Urine RBC Urine WBC Urine Yeast (Budding) Ur Amphetamines Screen U Marijuana (THC) Screen 07/11/19 07/10/19 07/10/19 01:32 23:27 07:30 RBC Hgb POC Hct MCHC Lymph # (Auto) Lymphocytes % D-Dimer POC BUN BUN Creatinine POC Creatinine Glucose Calcium POC WB Ioniz Calcium Lactate Dehydrogenase Troponin T 0.08 H* 0.06 H* NT-Pro-B Natriuret Pep HDL Cholesterol Ur Specific [place] 1.039 H Urine Protein 100 A Urine Glucose (UA) 50 A Urine Ketones 5/tr A Urine Occult Blood 0.2 A Urine RBC > 182 H Urine WBC 62 H Urine Yeast (Budding) Many A Ur Amphetamines Screen U Marijuana (THC) Screen 07/10/19 07/10/19 07/10/19 04:45 04:45 03:45 RBC Hgb POC Hct MCHC Lymph # (Auto) Lymphocytes % D-Dimer POC BUN BUN Creatinine POC Creatinine Glucose Calcium POC WB Ioniz Calcium Lactate Dehydrogenase Troponin T 0.06 H* NT-Pro-B Natriuret Pep HDL Cholesterol Ur Specific [place] Urine Protein 100 A Urine Glucose (UA) Urine Ketones Urine Occult Blood Urine RBC 2 H Urine WBC Urine Yeast (Budding) Ur Amphetamines Screen Suspect positive A U Marijuana (THC) Screen Suspect positive A 07/10/19 07/10/19 07/10/19 03:45 03:45 03:45 RBC 4.62 L Hgb 13.1 L POC Hct MCHC Lymph # (Auto) Lymphocytes % 10 L D-Dimer 0.69 H POC BUN BUN Creatinine 1.4 H POC Creatinine Glucose 110 H Calcium POC WB Ioniz Calcium Lactate Dehydrogenase Troponin T NT-Pro-B Natriuret Pep 5971.0 H HDL Cholesterol Ur Specific [place] Urine Protein Urine Glucose (UA) Urine Ketones Urine Occult Blood Urine RBC Urine WBC Urine Yeast (Budding) Ur Amphetamines Screen U Marijuana (THC) Screen Meds: Medications Acetaminophen (Tylenol) 650 mg PO Q6H [facility] Last Admin: 07/12/19 09:32 Dose: 650 mg Documented by: Hydrocodone Bitart/Acetaminophen ([place] 5/325mg) 1 tab PO Q6HP PRN; Protocol PRN Reason: Per Pain Protocol Last Admin: 07/12/19 07:40 Dose: 1 tab Documented by: Albuterol/Ipratropium (Duoneb) 3 ml NEB Q4HP PRN PRN Reason: Shortness Of Breath Last Admin: 07/11/19 12:44 Dose: 3 ml Documented by: Aspirin (Aspirin) 81 mg PO DAILY [facility] Last Admin: 07/12/19 08:34 Dose: 81 mg Documented by: Atorvastatin Calcium (Lipitor) 20 mg PO HS [facility] Last Admin: 07/11/19 19:56 Dose: 20 mg Documented by: Furosemide (Lasix) 40 mg PO DAILY [facility] Last Admin: 07/12/19 08:34 Dose: 40 mg Documented by: Potassium Chloride 40 meq/ (Dextrose) 520 mls @ 130 mls/hr IV UD PRN PRN Reason: Potassium < 3 Magnesium Sulfate (Magnesium Sulfate) 2 gm in 50 mls @ 50 mls/hr IV UD PRN PRN Reason: Magnesium </= 1.6 Piperacillin Sod/Tazobactam (Sod 3.375 gm/ Dextrose) 50 mls @ 100 mls/hr IV Q6H [facility]; Protocol Last Infusion: 07/12/19 06:27 Dose: Infused Documented by: Ibuprofen (Motrin) 200 mg PO BID [facility]; Protocol Last Admin: 07/12/19 09:31 Dose: 200 mg Documented by: Labetalol HCl (Trandate) 0 mg IV Q2HP PRN PRN Reason: Hypertension Last Admin: 07/11/19 22:13 Dose: 10 mg Documented by: Lorazepam (Ativan) 0.5 mg IV Q6HP PRN PRN Reason: ANXIETY/SEDATION Last Admin: 07/12/19 06:42 Dose: 0.5 mg Documented by: Metoprolol Succinate (Toprol Xl) 50 mg PO DAILY [facility] Last Admin: 07/12/19 08:34 Dose: 50 mg Documented by: Metoprolol Tartrate (Lopressor) 5 mg IV Q5M PRN PRN Reason: Tachycardia > 120-130 Nitroglycerin (Nitrostat) 0.4 mg SL Q5M PRN PRN Reason: Chest Pain Ondansetron HCl (Zofran) 4 mg IV Q4HP PRN PRN Reason: Nausea And Vomiting Polyethylene Glycol (Miralax) 17 gm PO DAILYP PRN PRN Reason: Constipation Potassium Chloride (Kdur) 40 meq PO UD PRN PRN Reason: Potssium is 3-3.5 Potassium Chloride (Kdur) 40 meq PO UD PRN PRN Reason: Potassium < 3 Rivaroxaban (Xarelto) 20 mg PO QPMCC [facility] Last Admin: 07/11/19 16:47 Dose: 20 mg Documented by: Senna (Senokot) 2 tab PO DAILYP PRN PRN Reason: Constipation Sodium Chloride (Saline Flush) 10 ml IV Q8 [facility] Last Admin: 07/12/19 05:56 Dose: 10 ml Documented by: Spironolactone (Aldactone) 25 mg PO DAILY [facility] Last Admin: 07/12/19 08:34 Dose: 25 mg Documented by: Medical - PN: A/P - Time Spent With Patient Total time spent is greater than 50% in coordination of care (as documented) at patient's floor/unit and/or counseling patient: Greater than 35 minutes (Critical care time) (1) Sepsis with acute hypoxic respiratory failure without septic shock Status: Acute Assessment and plan: * Acute respiratory failure with hypoxia and hypercapnia with respiratory acidosis. Clinical improvement noted. Blood gas normalized. On trials of BiPAP * Bilateral multifocal pneumonia likely community-acquired -clinically improving on antibiotic coverage * Severe sepsis- clinically improved with management per guidelines * A. fib with RVR currently rate controlled. Continue beta-birgit. Patient has not been taking his beta-birgit or Xarelto at home * Headaches-chronic and episodic. Continue Tylenol and low-dose NSAID * Demand ischemia with troponin elevation peak 0.08, recent cardiac cath 10/2018 normal coronaries * History of CKD creatinine 1.7. * Obesity, BMI 37. Continue targeted intervention including nutrition and therapies * History of CVA * Tobacco dependence * History of hypertension-has not been taking his home medications. Plan * Wean BiPAP as tolerated * Continue antibiotic coverage * Tylenol and low-dose NSAID * Schedule outpatient follow-up with PCP * Improving prognosis Current Visit: Yes Medical - PN: Qual - VTE Deep Vein Thrombosis/Pulmonary Embolism Present on Admission: No
[2019-07-12] MEDS: RIVAROXABAN 20 MG TABLET PO SCH (17:42)
[2019-07-12] MEDS: METOPROLOL TARTRATE 5 MG/5 ML VIAL IV PRN ×2 (19:06→19:11)
[2019-07-12] MEDS: ATORVASTATIN 20 MG TABLET PO SCH (20:48)
[2019-07-13] MEDS: HYDROcodone/APAP 5/325MG TABLET PO PRN ×3 (01:55→13:56)
[2019-07-13] MEDS: ONDANSETRON 4 MG/2 ML VIAL IV PRN ×2 (01:55→20:53)
[2019-07-13] MEDS: LORazepam 2 MG/ML VIAL IV PRN ×3 (01:55→13:55)
[2019-07-13] MEDS: ACETAMINOPHEN 325 MG TABLET PO SCH ×4 (03:38→23:02)
[2019-07-13] MEDS: PIPERACILLIN SODIUM/TAZOBACTAM 3.375 GM in DEXTROSE 5% IN WATER 50 ML IV SCH ×3 (05:58→17:35)
[2019-07-13] MEDS: 0.9 % SODIUM CHLORIDE 10 ML SYRINGE IV SCH ×4 (05:58→23:28)
[2019-07-13 08:09] LABS: Band Neutrophils % 6 % (0-10); Eosinophils % (Manual) 6 % (0-7); Lymphocytes % 23 % (15-49); Monocytes % (Manual) 11 % (1-12); Platelet Estimate NORMAL (NORMAL); RBC Morphology NORMAL (NORMAL); Reactive Lymphocytes 5 % (0-2); Segmented Neutrophils % 49 % (38-78)
[2019-07-13 08:17] LABS: Hematocrit 39.8 % (40.1-51.0); Hemoglobin 12.3 g/dL (13.7-17.5); Mean Cell Volume 92.3 fL (80.0-100.0); Mean Corpuscular HGB Conc 30.9 g/dL (31.0-36.0); Mean Platelet Volume 10.2 fL (7.4-10.4); Platelet Count 219 K/mcL (140-440); RBC 4.31 M/mcL (4.63-6.08); Red Cell Distribution Width 12.9 % (11.5-14.5); WBC 5.2 K/mcL (4.50-11.00)
[2019-07-13] MEDS: FUROSEMIDE 40 MG TABLET PO SCH (08:33)
[2019-07-13] MEDS: METOPROLOL SUCCINATE 50 MG TAB.XL.24H PO SCH (08:33)
[2019-07-13] MEDS: SPIRONOLACTONE 25 MG TABLET PO SCH (08:33)
[2019-07-13] MEDS: IBUPROFEN 200 MG TABLET PO SCH ×2 (08:33→20:53)
[2019-07-13] MEDS: ASPIRIN 81 MG TAB.CHEW PO SCH (08:34)
[2019-07-13 09:06] LABS: ALT/SGPT 23 U/l (0-40); AST/SGOT 21 U/l (0-37); Albumin 3.6 gm/dL (3.2-5.2); Albumin/Globulin Ratio 1.3 (1.0-2.3); Alkaline Phosphatase 67 U/L (39-117); Bilirubin,Direct < 0.2 mg/dL (0.0-0.3); Bilirubin,Total 0.2 mg/dL (0.0-1.0); Blood Urea Nitrogen 26 mg/dl (6-20); Calcium 8.9 mg/dl (8.6-10.4); Carbon Dioxide 30 mmol/L (22-30); Chloride 102 mmol/L (96-108); Globulin 2.7 gm/dL (2.2-3.7); Glomerular Filtration Rate 57; Glucose 113 mg/dL (70-105); Lactate Dehydrogenase 264 U/L (94-250); Phosphorous 5.3 mg/dL (2.7-4.5); Triglycerides 94 mg/dl (<150); Uric Acid 4.8 mg/dL (2.5-8.0)
[2019-07-13] MEDS: BUTALB/ACETAMINOPHEN/CAFFEINE 1 TABLET PO PRN ×2 (10:38→20:53)
--- NOTE | 2019-07-13 10:43 | Internal Med Progress Note ---
Medical - PN: Subj Patient information: Note initiated : 07/13/19 at 10:41 am Service Date, if different from initiated Date: [] Patient: Wilfredo Miranda a 54 y/o M admitted on 07/10/19 for rapid HR. Chief Complaint: [] Interval history: Mr. Miranda is a 54 year old M Presents ED with increasing shortness of breath and fevers and chills. She also complains of chest tightness which she relates to feeling like he has gurgling in his his lungs and this has been occurring intermittently for the past 6 months. 6 months ago he was admitted to [place] for a non-ST elevation [place]. He had a coronary catheterization which showed normal coronaries. Echocardiogram showed EF of 40 to 45% with diastolic dysfunction. He had moderate pulmonary hypertension. Patient has had increased cough for 3 days occasionally productive of clear sputum. Also has sinus congestion. In ED requiring 10 to 12 L of oxygen. CTA of the chest showed bilateral parenchymal infiltrates worse on the left. No pulmonary emboli. Fever of 102 when he came in. He was tachycardic in the 130s with A. fib. He was started on diltiazem drip. Had some low blood pressure since then. Lactic acid is okay. Has had leg swelling the past but not too much right now. ER monitor is recording pulse of 30 but this is the pulse ox its recording that and per the staff his actual heart rates 90s. His troponin was 0.06 as it was on previous ED visit and May and a repeat was remained the same. Patient is only been taking his lisinopril and aspirin. He has not been taking the metoprolol Xarelto Aldactone Lasix and statin medication as prescribed on last discharge from [place]. 07/10- 11.45 PM, ABG improved 7.3 on 50% FiO2 BiPAP. Continue antibiotic coverage/noninvasive ventilation. Telemetry A. fib with variable rate currently controlled around 110. No chest pain. Repeat chest imaging/ABGs in the morning. Troponin recheck 0.08. Staff expressed concerns about urine retention/throbbing headache. 07/11-patient currently on BiPAP. Reviewed blood gases and chest imaging. On 40% FiO2.ABG 7.30/63/115, bilateral multifocal chest infiltrates worsening. On antibiotic coverage. Continue noninvasive ventilation as tolerated. Continue ICU care. Remains critically ill. A. fib RVR now rate controlled around 120. Continue beta-birgit. 07/12-patient on trials off BiPAP. Improved oxygenation currently on 5 L nasal cannula. Able to talk in full sentences. Complains of splitting headache which has has been longstanding over the last 5 years. However now feels out of control. Started on scheduled Tylenol/Motrin. Continuing antibiotic coverage. Also concerns about a prior history of spider bite on the nose in relation to headaches. It showed that patient is already on antibiotics for pneumonia and t here is no active visible active area of skin infection that needs to be addressed emergently. 07/13-patient doing well. Weaning off BiPAP. Complains of intermittent headache. Currently on 4 L oxygen. Improved hemodynamics. Creatinine down to 1.4. Urine drug screen positive for amphetamines. Patient has been agitated and verbally abusive early this morning however much more cooperative at this time. Yao is discontinued. Continue antibiotic coverage and transition to oral antibiotics in 24 hours. RT to assess home oxygen - Constitutional Vitals: Vital Signs Temp Pulse Resp BP Pulse Ox 98 F 116 H 18 144/100 96 07/13/19 08:02 07/12/19 11:10 07/13/19 08:02 07/13/19 10:01 07/13/19 08:02 Period Temp Pulse Resp BP Sys/Garcia Pulse Ox Last 24 Hr 97.1 F-98.8 F 116 14-22 101-160/81-134 93-100 Intake and Output 07/12/19 07/13/19 07/13/19 21:59 05:59 13:59 Intake Total 770 410 50 Output Total 961 800 Balance -191 -390 50 Weight 259 lb Intake & Output: Intake & Output 07/12/19 07/13/19 07/13/19 21:59 05:59 13:59 Intake Total 770 410 50 Output Total 961 800 Balance -191 -390 50 Weight 259 lb Intake: IV 50 50 50 Zosyn 3.375 gm In Dextrose 5% 50 50 50 in Water 50 ml @ 100 mls/hr IV Q6H [facility] Rx#:[id number] Oral 720 360 Output: Urine Catheter Amount 960 500 Void Amount 300 # of times incontinent of urine 1 Other: Meal Dinner snack Percent of Meal Consumed 100% 100% Feeding Ability Independent Assist with Tray Set Up Urine Appearance Cloudy Hematuria Large Blood Clots Uretheral (Yao) Hematuria Small Blood Clots Urine Color Dark Kendal Dark Red Uretheral (Yao) Light Kendal Urine Odor Normal General appearance: moderate distress Exam: Short of breath and anxious No telemetry event Minimally labored breathing on 3 L oxygen No lymphedema Medical - PN: Obj Da - Labs CBC & Chem 7: 07/13/19 05:34 07/13/19 05:34 Labs: Abnormal Lab Results 07/13/19 07/13/19 07/11/19 05:34 05:34 01:33 RBC 4.31 L Hgb 12.3 L Hct 39.8 L POC Hct 38.0 L MCHC 30.9 L Lymph # (Auto) Reactive Lymphocytes 5 H POC BUN 28 H BUN 26 H Creatinine 1.4 H POC Creatinine 1.7 H Glucose 113 H Calcium POC WB Ioniz Calcium 1.08 L Phosphorus 5.3 H Lactate Dehydrogenase 264 H Troponin T HDL Cholesterol Ur Specific [place] Urine Protein Urine Glucose (UA) Urine Ketones Urine Occult Blood Urine RBC Urine WBC Urine Yeast (Budding) Ur Amphetamines Screen U Marijuana (THC) Screen 07/11/19 07/11/19 07/11/19 01:33 01:33 01:32 RBC 4.39 L Hgb 12.4 L Hct POC Hct MCHC 30.8 L Lymph # (Auto) 1.00 L Reactive Lymphocytes POC BUN BUN 26 H Creatinine 1.7 H POC Creatinine Glucose Calcium 8.1 L POC WB Ioniz Calcium Phosphorus Lactate Dehydrogenase 263 H Troponin T HDL Cholesterol 27 L Ur Specific [place] 1.039 H Urine Protein 100 A Urine Glucose (UA) 50 A Urine Ketones 5/tr A Urine Occult Blood 0.2 A Urine RBC > 182 H Urine WBC 62 H Urine Yeast (Budding) Many A Ur Amphetamines Screen U Marijuana (THC) Screen 07/10/19 07/10/19 23:27 04:45 RBC Hgb Hct POC Hct MCHC Lymph # (Auto) Reactive Lymphocytes POC BUN BUN Creatinine POC Creatinine Glucose Calcium POC WB Ioniz Calcium Phosphorus Lactate Dehydrogenase Troponin T 0.08 H* HDL Cholesterol Ur Specific [place] Urine Protein Urine Glucose (UA) Urine Ketones Urine Occult Blood Urine RBC Urine WBC Urine Yeast (Budding) Ur Amphetamines Screen Suspect positive A U Marijuana (THC) Screen Suspect positive A Meds: Medications Acetaminophen (Tylenol) 650 mg PO Q6H [facility] Last Admin: 07/13/19 08:35 Dose: 650 mg Documented by: Acetaminophen/Butalbital/Caffeine (Fioricet) 1 tab PO Q6HP PRN PRN Reason: Headache Last Admin: 07/13/19 10:38 Dose: 1 tab Documented by: Hydrocodone Bitart/Acetaminophen ([place] 5/325mg) 2 tab PO Q6HP PRN; Protocol PRN Reason: Per Pain Protocol Last Admin: 07/13/19 07:50 Dose: 2 tab Documented by: Albuterol/Ipratropium (Duoneb) 3 ml NEB Q4HP PRN PRN Reason: Shortness Of Breath Last Admin: 07/11/19 12:44 Dose: 3 ml Documented by: Aspirin (Aspirin) 81 mg PO DAILY [facility] Last Admin: 07/13/19 08:34 Dose: 81 mg Documented by: Atorvastatin Calcium (Lipitor) 20 mg PO HS [facility] Last Admin: 07/12/19 20:48 Dose: 20 mg Documented by: Furosemide (Lasix) 40 mg PO DAILY [facility] Last Admin: 07/13/19 08:33 Dose: 40 mg Documented by: Potassium Chloride 40 meq/ (Dextrose) 520 mls @ 130 mls/hr IV UD PRN PRN Reason: Potassium < 3 Magnesium Sulfate (Magnesium Sulfate) 2 gm in 50 mls @ 50 mls/hr IV UD PRN PRN Reason: Magnesium </= 1.6 Piperacillin Sod/Tazobactam (Sod 3.375 gm/ Dextrose) 50 mls @ 100 mls/hr IV Q6H [facility]; Protocol Last Infusion: 07/13/19 06:44 Dose: Infused Documented by: Ibuprofen (Motrin) 200 mg PO BID [facility]; Protocol Last Admin: 07/13/19 08:33 Dose: 200 mg Documented by: Labetalol HCl (Trandate) 0 mg IV Q2HP PRN PRN Reason: Hypertension Last Admin: 07/11/19 22:13 Dose: 10 mg Documented by: Lorazepam (Ativan) 0.5 mg IV Q6HP PRN PRN Reason: ANXIETY/SEDATION Last Admin: 07/13/19 07:50 Dose: 0.5 mg Documented by: Metoprolol Succinate (Toprol Xl) 50 mg PO DAILY [facility] Last Admin: 07/13/19 08:33 Dose: 50 mg Documented by: Metoprolol Tartrate (Lopressor) 5 mg IV Q5M PRN PRN Reason: Tachycardia > 120-130 Last Admin: 07/12/19 19:11 Dose: 5 mg Documented by: Nitroglycerin (Nitrostat) 0.4 mg SL Q5M PRN PRN Reason: Chest Pain Ondansetron HCl (Zofran) 4 mg IV Q4HP PRN PRN Reason: Nausea And Vomiting Last Admin: 07/13/19 01:55 Dose: 4 mg Documented by: Polyethylene Glycol (Miralax) 17 gm PO DAILYP PRN PRN Reason: Constipation Potassium Chloride (Kdur) 40 meq PO UD PRN PRN Reason: Potssium is 3-3.5 Potassium Chloride (Kdur) 40 meq PO UD PRN PRN Reason: Potassium < 3 Rivaroxaban (Xarelto) 20 mg PO QPMCC [facility] Last Admin: 07/12/19 17:42 Dose: 20 mg Documented by: Senna (Senokot) 2 tab PO DAILYP PRN PRN Reason: Constipation Sodium Chloride (Saline Flush) 10 ml IV Q8 [facility] Last Admin: 07/13/19 05:58 Dose: 10 ml Documented by: Spironolactone (Aldactone) 25 mg PO DAILY [facility] Last Admin: 07/13/19 08:33 Dose: 25 mg Documented by: Medical - PN: A/P - Time Spent With Patient Total time spent is greater than 50% in coordination of care (as documented) at patient's floor/unit and/or counseling patient: 25 - 35 minutes (1) Sepsis with acute hypoxic respiratory failure without septic shock Status: Acute Assessment and plan: * Acute respiratory failure with hypoxia and hypercapnia with respiratory acidosis. Clinically improved. Now on 3-4 L oxygen. Off noninvasive mechanical ventilation * Bilateral multifocal pneumonia -clinically improved on antibiotic coverage. Continue aspiration precautions. Transition to oral antibiotics in 24 hours. * Severe sepsis- clinically resolved with management per guidelines * A. fib with RVR currently rate controlled. Continue beta-birgit. Patient has not been taking his beta-birgit or Xarelto at home. Currently on rivaroxaban * Headaches-chronic and episodic. Continue opioids/Fioricet as needed * Demand ischemia with troponin elevation peak 0.08, recent cardiac cath 10/2018 normal coronaries * History of CKD creatinine improved 1.4 * Hypertension continue beta-birgit/ISSA inhibitor * Obesity, BMI 37. Continue targeted intervention including nutrition and therapies. Schedule outpatient sleep study * History of CVA * Right middle lobe nodule-repeat CT in 3 to 6 months recommended * Tobacco dependence * History of hypertension-has not been taking his home medications * Full code * prophylaxis anticoagulated Plan * De-escalate antibiotic coverage in 24 hours * Tylenol and low-dose NSAID * Outpatient sleep study * Exercise oximetry for home oxygen evaluation * Schedule outpatient follow-up with PCP * Repeat CT chest in 3 to 6 months for right middle lobe nodule * Anticipate discharge in 24 hours with home oxygen/antibiotics * Attempt PT OT/continue nutrition support Current Visit: Yes Medical - PN: Qual - VTE Deep Vein Thrombosis/Pulmonary Embolism Present on Admission: No
[2019-07-13] MEDS: LABETALOL 5 MG/ML ML IV PRN ×2 (15:51→23:28)
[2019-07-13] MEDS: RIVAROXABAN 20 MG TABLET PO SCH (17:34)
[2019-07-13] MEDS: ATORVASTATIN 20 MG TABLET PO SCH (20:54)
[2019-07-13] MEDS: IPRATROPIUM/ALBUTEROL 3 ML AMPUL.NEB NEB PRN (21:09)
[2019-07-14] MEDS: PIPERACILLIN SODIUM/TAZOBACTAM 3.375 GM in DEXTROSE 5% IN WATER 50 ML IV SCH ×3 (00:17→12:52)
[2019-07-14] MEDS: LABETALOL 5 MG/ML ML IV PRN (02:08)
[2019-07-14] MEDS: HYDROcodone/APAP 5/325MG TABLET PO PRN ×2 (03:27→10:22)
[2019-07-14] MEDS: LORazepam 2 MG/ML VIAL IV PRN ×2 (03:28→10:33)
[2019-07-14] MEDS: 0.9 % SODIUM CHLORIDE 10 ML SYRINGE IV SCH ×2 (03:31→05:59)
[2019-07-14] MEDS: ACETAMINOPHEN 325 MG TABLET PO SCH ×2 (03:32→12:50)
[2019-07-14 06:19] LABS: Hemoglobin 11.7 g/dL (13.7-17.5); Mean Cell Volume 93.1 fL (80.0-100.0); Mean Corpuscular HGB Conc 30.8 g/dL (31.0-36.0); Mean Platelet Volume 10.1 fL (7.4-10.4); Platelet Count 217 K/mcL (140-440); RBC 4.08 M/mcL (4.63-6.08); Red Cell Distribution Width 12.6 % (11.5-14.5); WBC 6.4 K/mcL (4.50-11.00)
[2019-07-14 06:49] LABS: Band Neutrophils % 9 % (0-10); Eosinophils % (Manual) 4 % (0-7); Lymphocytes % 28 % (15-49); Monocytes % (Manual) 12 % (1-12); Platelet Estimate NORMAL (NORMAL); RBC Morphology NORMAL (NORMAL); Segmented Neutrophils % 47 % (38-78)
[2019-07-14 06:54] LABS: ALT/SGPT 35 U/l (0-40); AST/SGOT 29 U/l (0-37); Albumin 3.5 gm/dL (3.2-5.2); Albumin/Globulin Ratio 1.2 (1.0-2.3); Alkaline Phosphatase 76 U/L (39-117); Bilirubin,Total 0.3 mg/dL (0.0-1.0); Blood Urea Nitrogen 30 mg/dl (6-20); Calcium 8.7 mg/dl (8.6-10.4); Carbon Dioxide 29 mmol/L (22-30); Chloride 101 mmol/L (96-108); Globulin 2.9 gm/dL (2.2-3.7); Glomerular Filtration Rate 52; Glucose 93 mg/dL (70-105); Lactate Dehydrogenase 269 U/L (94-250); Triglycerides 126 mg/dl (<150); Uric Acid 5.7 mg/dL (2.5-8.0)
[2019-07-14 06:56] LABS: Bilirubin,Direct < 0.2 mg/dL (0.0-0.3); Phosphorous 5.2 mg/dL (2.7-4.5)
--- NOTE | 2019-07-14 06:59 | XRay Report ---
CLINICAL INFORMATION:Tachycardia TECHNIQUE: AP portable semiupright chest x-ray COMPARISON: Previous chest x-rays dated 07/11/2019, 07/10/2019 FINDINGS:Severe cardiomegaly. Pericardial effusion is not excluded. Pulmonary vascularity is prominent and there may be interstitial pulmonary edema. Overall appearance is somewhat worse than on previous examination. No focal pulmonary parenchymal consolidation. No evidence for pneumonia. Follow-up radiographs are recommended IMPRESSION: 1. Severe cardiomegaly 2. Probable interstitial pulmonary edema. 3. Overall appearance is somewhat worse than on previous examinations Interpreted and Authenticated by: Babatunde Adam 07/14/19
[2019-07-14] MEDS ORDERED: LISINOPRIL 20 MG TABLET PO SCH (09:00)
[2019-07-14] MEDS: SPIRONOLACTONE 25 MG TABLET PO SCH (10:22)
[2019-07-14] MEDS: IBUPROFEN 200 MG TABLET PO SCH (10:23)
[2019-07-14] MEDS: METOPROLOL SUCCINATE 50 MG TAB.XL.24H PO SCH (10:23)
[2019-07-14] MEDS: ASPIRIN 81 MG TAB.CHEW PO SCH (10:23)
[2019-07-14] MEDS: FUROSEMIDE 40 MG TABLET PO SCH (10:23)
--- NOTE | 2019-07-14 10:33 | Discharge Summary ---
Medical - DS: Prov Patient information: Note initiated : 07/14/19 at 10:30 am Service Date, if different from initiated Date: [] Patient: Wilfredo Miranda 54 y/o M admitted on 07/10/19 for rapid HR. Chief Complaint: [] Date of admission: 07/10/19 10:51 Discharge date: 07/14/19 Primary care physician: Unknown Unknown Consults: 07/10/19 Consult to Physician [CONS] Stat Comment: Consulting Provider: Yusuf Pemberton Reason For Exam: Physician to Consult Medical - DS: Meds - Discharge Medications Bad tableActive and Home Medications: Home Medications lisinopril 20 mg tablet 20 mg PO DAILY tab 06/26/19 [History Confirmed 07/10/19 Last Taken 07/09/19] Acetaminophen [Tylenol] 650 mg PO Q6H tab 07/14/19 [Rx Last Taken Unknown] Amoxicillin/Potassium Clav [Augmentin] 875 mg PO Q12H #10 tab 07/14/19 [Rx Last Taken Unknown] Aspirin 81 mg PO DAILY tab.chew 07/14/19 [Rx Last Taken Unknown] Atorvastatin [Lipitor] 20 mg PO HS tab 07/14/19 [Rx Last Taken Unknown] Butalb/Acetaminophen/Caffeine [Fioricet] 1 tab PO Q6HP PRN #30 tab 07/14/19 [Rx Last Taken Unknown] Furosemide [Lasix] 40 mg PO DAILY tab 07/14/19 [Rx Last Taken Unknown] LORazepam [Ativan] 0.5 mg PO Q8HP PRN #14 tab 07/14/19 [Rx Last Taken Unknown] Metoprolol Succinate [Toprol Xl] 50 mg PO DAILY tab.xl.24h 07/14/19 [Rx Last Taken Unknown] Rivaroxaban [Xarelto] 20 mg PO QPMCC tab 07/14/19 [Rx Last Taken Unknown] Spironolactone [Aldactone] 25 mg PO DAILY tab 07/14/19 [Rx Last Taken Unknown] Medical - DS: Hosp Hospital Course: Discharge diagnosis * Acute respiratory failure with hypoxia and hypercapnia with respiratory acidosis. Clinically improved. Now on 4 L oxygen. Discharging home on oxygen. Schedule outpatient pulmonary follow-up. * Bilateral multifocal pneumonia -clinically improved on antibiotic coverage. Additional 5 days oral Augmentin * Severe sepsis- clinically resolved with management per guidelines * A. fib with RVR currently rate controlled. Continue beta-birgit. Patient has not been taking his beta-birgit or Xarelto at home. Currently on rivaroxaban. Continue as advised * Headaches-chronic and episodic. Continue as needed Tylenol/Fioricet * Anxiety disorder on as needed benzodiazepine * Demand ischemia with troponin elevation peak 0.08, recent cardiac cath 10/2018 normal coronaries * History of CKD creatinine improved 1.5. Follow-up with nephrology as outpatient * Hypertension continue beta-birgit/ISSA inhibitor * Obesity, BMI 37. Continue targeted intervention including nutrition and therapies. Schedule outpatient sleep study * History of CVA-continue anticoagulation on Xarelto * Right middle lobe nodule-repeat CT in 3 to 6 months recommended * Tobacco dependence * History of hypertension-continue metoprolol Brief hospital course Mr. Miranda is a 54 year old M Presents ED with increasing shortness of breath and fevers and chills. She also complains of chest tightness which she relates to feeling like he has gurgling in his his lungs and this has been occurring intermittently for the past 6 months. 6 months ago he was admitted to [facility] for a non-ST elevation FL. He had a coronary catheterization which showed normal coronaries. Echocardiogram showed EF of 40 to 45% with diastolic dysfunction. He had moderate pulmonary hypertension. Patient has had increased cough for 3 days occasionally productive of clear sputum. Also has sinus congestion. In ED requiring 10 to 12 L of oxygen. CTA of the chest showed bilateral parenchymal infiltrates worse on the left. No pulmonary emboli. Fever of 102 when he came in. He was tachycardic in the 130s with A. fib. He was started on diltiazem drip. Had some low blood pressure since then. Lactic acid is okay. Has had leg swelling the past but not too much right now. ER monitor is recording pulse of 30 but this is the pulse ox its recording that and per the staff his actual heart rates 90s. His troponin was 0.06 as it was on previous ED visit and May and a repeat was remained the same. Patient is only been taking his lisinopril and aspirin. He has not been taking the metoprolol Xarelto Aldactone Lasix and statin medication as prescribed on last discharge from [facility]. 2/10- 11.45 PM, ABG improved 7.3 on 50% FiO2 BiPAP. Continue antibiotic coverage/noninvasive ventilation. Telemetry A. fib with variable rate currently controlled around 110. No chest pain. Repeat chest imaging/ABGs in the morning. Troponin recheck 0.08. Staff expressed concerns about urine retention/throbbing headache. 07/11-patient currently on BiPAP. Reviewed blood gases and chest imaging. On 40% FiO2.ABG 7.30/63/115, bilateral multifocal chest infiltrates worsening. On antibiotic coverage. Continue noninvasive ventilation as tolerated. Continue ICU care. Remains critically ill. A. fib RVR now rate controlled around 120. Continue beta-birgit. 07/12-patient on trials off BiPAP. Improved oxygenation currently on 5 L nasal cannula. Able to talk in full sentences. Complains of splitting headache which has has been longstanding over the last 5 years. However now feels out of control. Started on scheduled Tylenol/Motrin. Continuing antibiotic coverage. Also concerns about a prior history of spider bite on the nose in relation to headaches. It showed that patient is already on antibiotics for pneumonia and there is no active visible active area of skin infection that needs to be addressed emergently. 07/13-patient doing well. Weaning off BiPAP. Complains of intermittent headache. Currently on 4 L oxygen. Improved hemodynamics. Creatinine down to 1.4. Urine drug screen positive for amphetamines. Patient has been agitated and verbally abusive early this morning however much more cooperative at this time. Yao is discontinued. Continue antibiotic coverage and transition to oral antibiotics in 24 hours. RT to assess home oxygen 07/14-patient clinically improved. Currently on 4 L oxygen. Discharging on home oxygen with antibiotic for additional 5 days. Counseled to refrain from methamphetamine use. Continue anticoagulation/beta-blockers and follow-up primary care physician. Patient has issues with medication adherence and was aggressively counseled on continue medications. Also recommended to repeat CT in 3 to 6 months to be done by primary care physician for evaluation of lung nodule. Will need follow-up with pulmonology and primary care physician. Discharge diagnosis: . - Time Spent with Patient Total time spent providing and/or coordinating discharge services: Greater than 30 minutes Medical - DS: Exam - Constitutional Vitals: Vital Signs Temp Pulse Pulse Resp BP BP Pulse Ox 07/14/19 07:09 97.9 F 22 129/103 98 07/14/19 05:01 97.4 F 112 H 20 124/98 98 07/14/19 01:55 97.8 F 116 H 18 153/123 96 07/14/19 01:30 96 07/13/19 23:52 98.3 F 62 20 131/92 100 07/13/19 23:45 95 07/13/19 20:00 98.0 F 75 24 H 142/107 99 07/13/19 15:42 99.1 F H 20 139/115 92 07/13/19 14:02 169/126 97 07/13/19 14:00 92 07/13/19 12:03 144/105 96 07/13/19 12:01 97.9 F 19 134/96 95 Intake and Output 07/13/19 07/14/19 07/14/19 21:59 05:59 13:59 Intake Total 700 1650 230 Output Total 450 150 250 Balance 250 1500 -20 Intake: IV 100 50 50 Zosyn 3.375 gm In Dextrose 5% 100 50 50 in Water 50 ml @ 100 mls/hr IV Q6H [facility] Rx#:[id number] Oral 600 1600 180 Output: Urine Catheter Amount 450 Void Amount 150 250 Other: Meal Nourishment/Supplement Percent of Meal Consumed 100% Nourishment/Supplement name mary Urine Color Red Brown Dark Red Dark Red Blood Tinged # Bowel Movements 1 Weight 260 lb 8 oz Medical - DS: Data Labs on day of discharge: Labs from last 24 hours 07/14/19 07/14/19 04:48 04:48 WBC 6.4 RBC 4.08 L Hgb 11.7 L Hct 38.0 L MCV 93.1 MCH 28.7 MCHC 30.8 L RDW 12.6 Plt Count 217 MPV 10.1 Total Counted 100 Seg Neutrophils % 47 Band Neutrophils % 9 Lymphocytes % 28 Monocytes % (Manual) 12 Eosinophils % (Manual) 4 Platelet Estimate Normal RBC Morphology Normal Sodium 142 Potassium 4.6 Chloride 101 Carbon Dioxide 29 Anion Gap 12.0 BUN 30 H Creatinine 1.5 H GFR Calculation 52 Glucose 93 Uric Acid 5.7 Calcium 8.7 Phosphorus 5.2 H Magnesium 1.9 Total Bilirubin 0.3 Direct Bilirubin < 0.2 GGT 60 AST 29 ALT 35 Alkaline Phosphatase 76 Lactate Dehydrogenase 269 H Total Protein 6.4 Albumin 3.5 Globulin 2.9 Albumin/Globulin Ratio 1.2 Triglycerides 126 Preliminary micro results at discharge 07/10/19 03:52 Blood Culture - Preliminary Blood 07/10/19 03:45 Blood Culture - Preliminary Blood 07/12/19 08:49 Sputum Culture - Preliminary Sputum - Expectorated Medical - DS: A/P - Patient/Caregiver Discharge Instructions Activity: increase activity as tolerated Diet: Regular Diet Additional Instructions: We are sending you home with a new patient coordinator form to fill out and return, fax or mail back to help us to assign you a new primary care physician. Alyson will meet you at home to set up your home oxygen. Follow-up with nephrology in 2 weeks Follow-up PCP in 1 week Follow pulmonology in 2 weeks for evaluation of COPD/sleep apnea/chronic CO2 retention Continue antibiotics for additional 5 days I recommend primary care physician to check CBC BMP UA as a posthospital follow- up in 1 week. oxygen @4-5 L to keep sats above 92 Please schedule pulmonary function test as outpatient in 3 weeks Continue aggressive bowel regimen to prevent constipation Continue fall precautions Daily weights measurements and take additional 40 mg Lasix for 3 days if weight gain over 4 pounds over baseline or worsening SOB and call primary care physician if inadequate response to Lasix Refrain from smoking and methamphetamine use All meals on chair sitting upright at 90 degrees to prevent aspiration Return to ER if worsening fever chills shortness of breath, diarrhea, bleeding Review risk and side effect profile of medications including antibiotics. Side effect may include mild to severe reaction including rash, diarrhea, cdiff and even which can be prevented by close follow-up with PCP and monitoring for side effect Continue diet and activity as advised Discussed importance of medication adherence Please review medication list with patient prior to discharge Please schedule follow-up with PCP/Providers prior to discharge and provide printouts Bad table - Problem Maintenance (1) Sepsis with acute hypoxic respiratory failure without septic shock Status: Acute - Follow up Plan Follow up with: Evelin Ochoa MD [Physician] - 07/24/19 10:30 am (This is a one time post hospital appointment.) Unknown,Unknown [Primary Care Provider] - Disposition: Home, Self-Care Care Plan Goals: This discharge packet is provided to you to help keep you informed about your care. We want to ensure you get everything you need when you go home. You will also be receiving a call from us in a few days to follow up with you and see how you are doing since your discharge. This gives us a chance to listen to any concerns you maybe experiencing since you were discharged or any additional needs you may have, as well as providing us feedback on your care experience. We strive to always provide excellent care and thank you for your feedback and for choosing [facility]. Prognosis: Fair Rehab Potential: Fair I certify that the patient requires SNF services: No Overall status at discharge: patient is progressing back to baseline Medical - DS: Qual - VTE Deep Vein Thrombosis/Pulmonary Embolism Present on Admission: No
[2019-07-17 11:22] LABS: Cannabinoid Confirmation POSITIVE (N)
== END 2019-07-14 12:30 | disposition home or self-care (01) | DRG 189 ==
LOC: ED 03:27 → ICU 10:51
PROVIDERS: ADMIT Internal Medicine; ATTEND Internal Medicine